=== PATIENT | male | born 1960 | race Caucasian/White ===

== ENCOUNTER 2018-01-02 01:44 | Emergency (ER) | payer OTHER, MEDICAID ==
[2018-01-02] MEDS: morphine 2 MG INJ IV (02:51)
[2018-01-02] MEDS: ONDANSETRON 4 MG INJ IV (02:51)
[2018-01-02] MEDS: LACTATED RINGER'S 1,000 ML IV (02:51)
[2018-01-02 02:55] LABS: ADD MAN DIFF? NO
[2018-01-02 02:56] LABS: WHITE BLOOD COUNT 12.5 10^3/ul (4.8-10.8)
[2018-01-02 02:56] LABS: BASOPHILS % 0.3 % (0.0-2.0); EOSINOPHILS # 0.1 10^3/ul (0.0-0.5); EOSINOPHILS % 0.7 % (0.0-7.0); HEMATOCRIT 33.8 % (42.0-52.0); HEMOGLOBIN 10.4 g/dl (14.0-18.0); LYMPHOCYTES # 1.8 10^3/ul (0.8-2.9); LYMPHOCYTES % 14.6 % (15.0-51.0); MEAN CORPUSCULAR HEMOGLOBIN 25.8 pg (29.0-33.0); MEAN CORPUSCULAR HGB CONC 30.8 g/dl (32.0-37.0); MEAN CORPUSCULAR VOLUME 83.9 fl (82.0-101.0); MEAN PLATELET VOLUME 9.8 fl (7.4-10.4); MONOCYTES % 7.7 % (0.0-11.0); NEUTROPHIL # 9.5 10^3/ul (1.6-7.5); NEUTROPHILS % 76.3 % (39.0-77.0); PLATELET COUNT 241 10^3/UL (140-415); RED BLOOD COUNT 4.03 10^6/ul (4.70-6.10); RED CELL DISTRIBUTION WIDTH 13.6 % (11.5-14.5)
[2018-01-02 03:17] LABS: ALANINE AMINOTRANSFERASE 32 IU/L (13-69); ALBUMIN 3.7 g/dl (3.3-4.9); ALKALINE PHOSPHATASE 119 IU/L (42-121); ANION GAP 12 (8-16); ASPARTATE AMINO TRANSFERASE 27 IU/L (15-46); BILIRUBIN,INDIRECT 0.3 mg/dl (0-1.1); BILIRUBIN,TOTAL 0.3 mg/dl (0.2-1.3); BLOOD UREA NITROGEN 29 mg/dl (7-20); CALCIUM 8.8 mg/dl (8.4-10.2); CARBON DIOXIDE 31 mmol/L (21-31); CHLORIDE 100 mmol/L (97-110); CREATININE 1.23 mg/dl (0.61-1.24); GLUCOSE 195 mg/dl (70-220); LIPASE 57 U/L (23-300); POTASSIUM 4.4 mmol/L (3.5-5.1); SODIUM 139 mmol/L (135-144); TOTAL PROTEIN 7.8 g/dl (6.1-8.1)
[2018-01-02 03:30] LABS: TROPONIN-I < 0.012 ng/ml (0.000-0.120)
[2018-01-02 03:39] LABS: ADD UMIC YES; UR ASCORBIC ACID NEGATIVE (NEGATIVE); UR BILIRUBIN (Dip) NEGATIVE (NEGATIVE); UR BLOOD (Dip) NEGATIVE (NEGATIVE); UR CLARITY CLEAR (CLEAR); UR COLOR YELLOW (YELLOW); UR GLUCOSE (Dip) 1+ mg/dL (NEGATIVE); UR KETONES (Dip) NEGATIVE (NEGATIVE); UR LEUKOCYTE ESTERASE (Dip) NEGATIVE Leu/ul (NEGATIVE); UR NITRITE (Dip) NEGATIVE (NEGATIVE); UR RBC 1 /HPF (0-5); UR SPECIFIC GRAVITY (Dip) 1.009 (1.003-1.030); UR TOTAL PROTEIN (Dip) 2+ mg/dl (NEGATIVE); UR UROBILINOGEN (Dip) NEGATIVE (NEGATIVE); UR WBC 0 /HPF (0-5)
[2018-01-02 03:47] LABS: B-TYPE NATRIURETIC PEPTIDE 1950 PG/ML (0-125)
[2018-01-02] MEDS: FUROSEMIDE 40 MG INJ IV (06:21)
== END 2018-01-02 07:15 | disposition home or self-care (01) ==
LOC: E/R 01:44
DX: R06.02 Shortness of breath (principal); R10.9 Unspecified abdominal pain; I10 Essential (primary) hypertension; E11.9 Type 2 diabetes mellitus without complications; Z79.4 Long term (current) use of insulin; Z79.82 Long term (current) use of aspirin; Z87.891 Personal history of nicotine dependence; Z98.61 Coronary angioplasty status
CPT/HCPCS: 36415; 71045; 80053; 81001; 83690; 83880; 84484; 85025; 93005; 96374; 96375; 99285-25

== ENCOUNTER 2018-01-03 06:27 | Inpatient (IN) | payer OTHER ==
[2018-01-03] MEDS: SODIUM CHLORIDE 0.9% 500 ML BAG IV* (06:39)
[2018-01-03 06:56] LABS: ADD MAN DIFF? NO
[2018-01-03] MEDS ORDERED: EPINEPHrine 0.1 MG/ML SYG (07:00)
[2018-01-03] MEDS ORDERED: NA BICARBONATE 8.4% 50 ML SYG (07:00)
[2018-01-03] MEDS ORDERED: DOPamine-D5W 1.6 MG/ML 250 ML ×2 (07:00→14:17)
[2018-01-03] MEDS ORDERED: ATROPINE 1 MG/10 ML SYRINGE ×2 (07:00→13:21)
[2018-01-03] MEDS ORDERED: DEXTROSE 50% 50 ML SYRINGE ×2 (07:00→07:27)
[2018-01-03] MEDS: VECURONIUM 10 MG VIAL IV (07:00)
[2018-01-03 07:02] LABS: WHITE BLOOD COUNT 21.1 10^3/ul (4.8-10.8)
[2018-01-03 07:02] LABS: ABNORMAL IP MESSAGE 1; BASOPHIL # 0.1 10^3/ul (0.0-0.1); BASOPHILS % 0.3 % (0.0-2.0); HEMOGLOBIN 10.7 g/dl (14.0-18.0); LYMPHOCYTES # 2.7 10^3/ul (0.8-2.9); LYMPHOCYTES % 12.5 % (15.0-51.0); MEAN CORPUSCULAR HEMOGLOBIN 26.9 pg (29.0-33.0); MEAN CORPUSCULAR HGB CONC 27.4 g/dl (32.0-37.0); MONOCYTE # 2.2 10^3/ul (0.3-0.9); MONOCYTES % 10.6 % (0.0-11.0); NEUTROPHIL # 15.4 10^3/ul (1.6-7.5); NUCLEATED RED BLOOD CELLS # 0.2 10^3/ul (0.0-0.0); NUCLEATED RED BLOOD CELLS% 0.7 /100WBC (0.0-0.0); PLATELET COUNT 203 10^3/UL (140-415); POSITIVE DIFF @See below; RED BLOOD COUNT 3.98 10^6/ul (4.70-6.10); RED CELL DISTRIBUTION WIDTH 13.9 % (11.5-14.5)
[2018-01-03 07:25] LABS: ALBUMIN 3.8 g/dl (3.3-4.9); ALKALINE PHOSPHATASE 130 IU/L (42-121); ANION GAP 41 (8-16); BILIRUBIN,INDIRECT 0.8 mg/dl (0-1.1); BLOOD UREA NITROGEN 33 mg/dl (7-20); CALCIUM 8.2 mg/dl (8.4-10.2); CARBON DIOXIDE 14 mmol/L (21-31); CHLORIDE 101 mmol/L (97-110); CREATININE 3.71 mg/dl (0.61-1.24); LIPASE 111 U/L (23-300); SODIUM 150 mmol/L (135-144); TOTAL PROTEIN 7.6 g/dl (6.1-8.1)
[2018-01-03 07:29] LABS: INR 2.31
[2018-01-03 07:30] LABS: PARTIAL THROMBOPLASTIN TIME 48.4 Sec (25.0-35.0)
[2018-01-03] MEDS: PROPOFOL 100 ML IV ×2 (07:31→21:00)
[2018-01-03] MEDS: DEXTROSE 50% 50 ML SYRINGE IV (07:38)
[2018-01-03] MEDS: DEXTROSE 5%-0.9% NACL 1,000 ML IV (07:40)
[2018-01-03 07:44] LABS: AADO2 Arterial 247.5 mmHg (7.0-24.0); Arterial Base Excess -23.4 mmol/L (-3.0-3); Arterial Blood Gas Oxygen Sat 99.5 mmHG (95.0-98.0); Arterial COHb 0.3 % (0.0-3.0); Arterial Fraction of Oxyhgb 98.5 % (93.0-99.0); Arterial HCO3 8.3 mmol/L (22.0-26.0); Arterial MetHb 0.7 % (0.0-1.5); Arterial Total Hemglobin 10.2 g/dl (12.0-18.0); Arterial pCO2 39.7 mmhg (35-45); MODE VENT - AC; Site Right Brachial
[2018-01-03 07:45] LABS: LACTIC ACID 21.4 mmol/L (0.5-2.0)
[2018-01-03 07:47] LABS: GLUCOSE 39 mg/dl (70-220); TROPONIN-I 0.197 ng/ml (0.000-0.120)
[2018-01-03 07:48] LABS: POTASSIUM 6.4 mmol/L (3.5-5.1)
[2018-01-03 08:10] LABS: ALANINE AMINOTRANSFERASE 3631 IU/L (13-69); ASPARTATE AMINO TRANSFERASE 3711 IU/L (15-46)
[2018-01-03] MEDS: SODIUM CHLORIDE 0.9% 1L BAG IV* (08:13)
[2018-01-03] MEDS: CEFEPIME 2GM/50 ML (PMX) 50 ML IVPB (08:16)
[2018-01-03] MEDS: CA CHLORIDE 10% 10 ML SYRINGE IV (08:16)
[2018-01-03 08:19] LABS: ANION GAP 35 (8-16); BLOOD UREA NITROGEN 35 mg/dl (7-20); CALCIUM 7.5 mg/dl (8.4-10.2); CARBON DIOXIDE 12 mmol/L (21-31); CHLORIDE 102 mmol/L (97-110); CREATININE 3.69 mg/dl (0.61-1.24); GLUCOSE 215 mg/dl (70-220); SODIUM 144 mmol/L (135-144)
[2018-01-03 08:28] LABS: LACTIC ACID 21.5 mmol/L (0.5-2.0)
[2018-01-03] MEDS: SOD CHLORIDE 0.9% 100 ML (08:58)
[2018-01-03] MEDS: IOHEXOL 100 ML (08:58)
[2018-01-03] MEDS: IOHEXOL 350MG/ML 50 ML BTL (08:59)
[2018-01-03] MEDS: NORepinephrine 8MG/250 ML (PMX 250 ML IV (09:20)
[2018-01-03] MEDS: VECURONIUM 100 MG in DEXTROSE 5% 100 ML IV ×2 (09:21→15:30)
[2018-01-03] MEDS ORDERED: ALBUTEROL/IPRATROPIUM (NEB) 3 ML AMP NEB (09:30)
[2018-01-03] MEDS ORDERED: VANCOMYCIN IV PER PHARMACY XX (09:30)
[2018-01-03] MEDS ORDERED: ACETAMINOPHEN 650 MG SUPP PR (09:30)
[2018-01-03] MEDS ORDERED: ALBUTEROL 0.083% (NEB) 2.5 MG/3 ML AMP NEB (09:30)
[2018-01-03] MEDS ORDERED: DEXTROSE 50% 50 ML SYRINGE IV ×2 (09:30)
[2018-01-03] MEDS ORDERED: MEPERIDINE 25 MG INJ IV ×2 (09:30)
[2018-01-03 10:16] LABS: LACTIC ACID 20.5 mmol/L (0.5-2.0)
[2018-01-03] MEDS: VANCOMYCIN 1 GM (PMX) 250 ML IVPB (10:24)
[2018-01-03 10:47] LABS: BLOOD UREA NITROGEN 35 mg/dl (7-20); CARBON DIOXIDE 11 mmol/L (21-31); CREATININE 3.69 mg/dl (0.61-1.24); GLUCOSE 211 mg/dl (70-220); POTASSIUM 5.6 mmol/L (3.5-5.1); SODIUM 143 mmol/L (135-144)
[2018-01-03 11:16] LABS: ANION GAP 34 (8-16); CHLORIDE 104 mmol/L (97-110)
[2018-01-03 11:20] LABS: MAGNESIUM 2.7 mg/dl (1.7-2.5)
[2018-01-03 11:33] LABS: PHOSPHORUS 13.7 mg/dl (2.5-4.9)
[2018-01-03 11:34] LABS: LACTIC ACID 21.6 mmol/L (0.5-2.0)
[2018-01-03 11:36] LABS: INR 2.83; PROTIME 30.6 Sec (11.9-14.9); PT RATIO 2.4
[2018-01-03 11:37] LABS: PARTIAL THROMBOPLASTIN TIME 45.1 Sec (25.0-35.0)
[2018-01-03] MEDS: ALBUTEROL 0.083% (NEB) 2.5 MG/3 ML AMP NEB ×2 (13:00→21:00)
[2018-01-03] MEDS: ALBUTEROL/IPRATROPIUM (NEB) 3 ML AMP NEB ×2 (13:00→21:53)
[2018-01-03] MEDS: ATROPINE 0.4 MG INJ IV (13:28)
[2018-01-03] MEDS ORDERED: PHENYLephrine 20MG IN 250 ML 250 ML IV (14:00)
[2018-01-03 14:16] LABS: ADD MAN DIFF? NO
[2018-01-03 14:20] LABS: ABNORMAL IP MESSAGE 1; BASOPHIL # 0.1 10^3/ul (0.0-0.1); BASOPHILS % 0.2 % (0.0-2.0); HEMATOCRIT 35.6 % (42.0-52.0); HEMOGLOBIN 9.6 g/dl (14.0-18.0); LYMPHOCYTES # 1.9 10^3/ul (0.8-2.9); LYMPHOCYTES % 7.3 % (15.0-51.0); MEAN CORPUSCULAR HEMOGLOBIN 26.4 pg (29.0-33.0); MEAN CORPUSCULAR VOLUME 98.1 fl (82.0-101.0); MEAN PLATELET VOLUME 10.8 fl (7.4-10.4); MONOCYTE # 1.4 10^3/ul (0.3-0.9); MONOCYTES % 5.5 % (0.0-11.0); NUCLEATED RED BLOOD CELLS% 0.1 /100WBC (0.0-0.0); PLATELET COUNT 206 10^3/UL (140-415); RED BLOOD COUNT 3.63 10^6/ul (4.70-6.10); RED CELL DISTRIBUTION WIDTH 13.7 % (11.5-14.5)
[2018-01-03 14:20] LABS: WHITE BLOOD COUNT 25.9 10^3/ul (4.8-10.8)
[2018-01-03] MEDS: NA BICARBONATE 8.4% 50 ML SYG IV (14:26)
[2018-01-03] MEDS: VASOPRESSIN 60 UNIT in DEXTROSE 5% 60 ML IV (14:30)
[2018-01-03 14:41] LABS: ALBUMIN 3.1 g/dl (3.3-4.9); ALBUMIN/GLOBULIN RATIO 0.93; ALKALINE PHOSPHATASE 108 IU/L (42-121); ANION GAP 35 (8-16); BILIRUBIN,INDIRECT 0.4 mg/dl (0-1.1); BILIRUBIN,TOTAL 0.8 mg/dl (0.2-1.3); BLOOD UREA NITROGEN 36 mg/dl (7-20); CALCIUM 7.9 mg/dl (8.4-10.2); CHLORIDE 104 mmol/L (97-110); CREATININE 3.94 mg/dl (0.61-1.24); GLUCOSE 210 mg/dl (70-220); MAGNESIUM 2.6 mg/dl (1.7-2.5); POTASSIUM 5.5 mmol/L (3.5-5.1); SODIUM 143 mmol/L (135-144); TOTAL PROTEIN 6.4 g/dl (6.1-8.1)
[2018-01-03 14:44] LABS: INR 2.97; PROTIME 31.8 Sec (11.9-14.9); PT RATIO 2.5
[2018-01-03 14:45] LABS: PARTIAL THROMBOPLASTIN TIME 44.9 Sec (25.0-35.0)
[2018-01-03 14:48] LABS: LACTIC ACID 20.1 mmol/L (0.5-2.0)
[2018-01-03 14:50] LABS: PHOSPHORUS 13.4 mg/dl (2.5-4.9)
[2018-01-03 14:52] LABS: CARBON DIOXIDE 10 mmol/L (21-31)
[2018-01-03] MEDS ORDERED: MIDAZOLAM (DRIP) 50 mg/50 mL 50 ML IV (15:00)
[2018-01-03] MEDS ORDERED: OCULAR LUBRICANT 3.5 GM OPH OINT BOTH EYES (15:00)
[2018-01-03] MEDS: ACCU-CHEK XX ×9 (15:00→23:00)
[2018-01-03] MEDS: INSULIN HUMAN REGULAR 100 UNIT in SOD CHLORIDE 0.9% 99 ML IV ×2 (15:00→23:00)
[2018-01-03] MEDS ORDERED: VASOPRESSIN 100 UNIT in SOD CHLORIDE 0.9% 95 ML IV (15:00)
[2018-01-03] MEDS: DOPamine-D5W 1.6 MG/ML 250 ML IV ×2 (15:30→20:06)
[2018-01-03 15:48] LABS: HEMOGLOBIN A1C 6.6 % (0-5.9)
[2018-01-03 15:59] LABS: ALANINE AMINOTRANSFERASE 5360 IU/L (13-69); ASPARTATE AMINO TRANSFERASE 7176 IU/L (15-46)
[2018-01-03] MEDS: SODIUM BICARBONATE (IV ADD) 150 MEQ in DEXTROSE 5%-0.45% NACL 850 ML IV ×2 (16:45→21:40)
[2018-01-03] MEDS: ASPIRIN 300 MG SUPP PR (17:00)
[2018-01-03] MEDS: VANCOMYCIN 1 GM 250 ML IVPB (17:32)
[2018-01-03] MEDS: ARTIFICIAL TEARS 15 ML OPH BOTH EYES ×2 (17:33→20:04)
[2018-01-03 18:30] LABS: ADD MAN DIFF? NO
[2018-01-03 18:33] LABS: BASOPHIL # 0.1 10^3/ul (0.0-0.1); BASOPHILS % 0.2 % (0.0-2.0); HEMATOCRIT 35.2 % (42.0-52.0); HEMOGLOBIN 9.5 g/dl (14.0-18.0); LYMPHOCYTES # 1.8 10^3/ul (0.8-2.9); LYMPHOCYTES % 6.4 % (15.0-51.0); MEAN CORPUSCULAR HEMOGLOBIN 26.1 pg (29.0-33.0); MEAN CORPUSCULAR VOLUME 96.7 fl (82.0-101.0); MEAN PLATELET VOLUME 11.1 fl (7.4-10.4); MONOCYTE # 1.3 10^3/ul (0.3-0.9); MONOCYTES % 4.7 % (0.0-11.0); NEUTROPHILS % 87.1 % (39.0-77.0); NUCLEATED RED BLOOD CELLS% 0.1 /100WBC (0.0-0.0); PLATELET COUNT 203 10^3/UL (140-415); RED BLOOD COUNT 3.64 10^6/ul (4.70-6.10); RED CELL DISTRIBUTION WIDTH 13.9 % (11.5-14.5)
[2018-01-03 18:35] LABS: WHITE BLOOD COUNT 27.5 10^3/ul (4.8-10.8)
[2018-01-03 18:52] LABS: ALBUMIN 3.2 g/dl (3.3-4.9); ALBUMIN/GLOBULIN RATIO 0.91; ALKALINE PHOSPHATASE 106 IU/L (42-121); AMYLASE 278 U/L (11-123); ANION GAP 39 (8-16); BILIRUBIN,INDIRECT 0.6 mg/dl (0-1.1); BILIRUBIN,TOTAL 1.2 mg/dl (0.2-1.3); BLOOD UREA NITROGEN 37 mg/dl (7-20); CALCIUM 7.9 mg/dl (8.4-10.2); CHLORIDE 101 mmol/L (97-110); CREATININE 4.11 mg/dl (0.61-1.24); GLUCOSE 230 mg/dl (70-220); LIPASE 593 U/L (23-300); MAGNESIUM 2.4 mg/dl (1.7-2.5); POTASSIUM 5.2 mmol/L (3.5-5.1); SODIUM 145 mmol/L (135-144); TOTAL PROTEIN 6.7 g/dl (6.1-8.1)
[2018-01-03 19:11] LABS: CARBON DIOXIDE 10 mmol/L (21-31)
[2018-01-03 19:12] LABS: LACTIC ACID 20.3 mmol/L (0.5-2.0)
[2018-01-03 19:12] LABS: PHOSPHORUS 13.4 mg/dl (2.5-4.9)
[2018-01-03 19:13] LABS: TROPONIN-I 0.423 ng/ml (0.000-0.120)
[2018-01-03 19:21] LABS: ALANINE AMINOTRANSFERASE 6936 IU/L (13-69)
[2018-01-03 19:28] LABS: ASPARTATE AMINO TRANSFERASE > 7500 IU/L (15-46)
[2018-01-03 19:50] LABS: D-DIMER > 10000.00 ng/ml (<460)
[2018-01-03] MEDS: ATORVASTATIN 40 MG TAB NGT (20:23)
[2018-01-03] MEDS: FAMOTIDINE 20 MG TAB PO (20:24)
[2018-01-03 20:57] LABS: AADO2 Arterial 620.4 mmHg (7.0-24.0); Arterial Base Excess -21.1 mmol/L (-3.0-3); Arterial HCO3 9.3 mmol/L (22.0-26.0); Arterial pCO2 31.6 mmhg (35-45); MODE VENT - AC; Site A-Line; Temperature 33.1 C
[2018-01-04] MEDS ORDERED: PHENYLephrine 40 MG in DEXTROSE 5% 496 ML IV
[2018-01-04] MEDS: ARTIFICIAL TEARS 15 ML OPH BOTH EYES ×5 (00:20→23:01)
[2018-01-04] MEDS: NA BICARBONATE 8.4% 50 ML SYG IV (00:21)
[2018-01-04] MEDS: ACCU-CHEK XX ×24 (01:00→23:00)
[2018-01-04] MEDS: SODIUM BICARBONATE (IV ADD) 150 MEQ in DEXTROSE 5%-0.45% NACL 850 ML IV ×4 (01:12→22:12)
[2018-01-04] MEDS: ALBUTEROL/IPRATROPIUM (NEB) 3 ML AMP NEB ×3 (01:20→09:00)
[2018-01-04 01:31] LABS: HEPATITIS B SURFACE ANTIGEN NEGATIVE (NEGATIVE)
[2018-01-04] MEDS: DOPamine-D5W 1.6 MG/ML 250 ML IV ×3 (01:42→15:12)
[2018-01-04 01:46] LABS: ADD MAN DIFF? NO
[2018-01-04 01:48] LABS: WHITE BLOOD COUNT 20.5 10^3/ul (4.8-10.8)
[2018-01-04 01:48] LABS: BASOPHILS % 0.1 % (0.0-2.0); HEMOGLOBIN 9.9 g/dl (14.0-18.0); MEAN CORPUSCULAR HEMOGLOBIN 26.5 pg (29.0-33.0); MEAN CORPUSCULAR VOLUME 88.2 fl (82.0-101.0); MEAN PLATELET VOLUME 11.1 fl (7.4-10.4); MONOCYTE # 0.4 10^3/ul (0.3-0.9); MONOCYTES % 1.9 % (0.0-11.0); NEUTROPHIL # 18.9 10^3/ul (1.6-7.5); NEUTROPHILS % 92.3 % (39.0-77.0); NUCLEATED RED BLOOD CELLS # 0.1 10^3/ul (0.0-0.0); NUCLEATED RED BLOOD CELLS% 0.2 /100WBC (0.0-0.0); PLATELET COUNT 156 10^3/UL (140-415); RED BLOOD COUNT 3.74 10^6/ul (4.70-6.10); RED CELL DISTRIBUTION WIDTH 13.5 % (11.5-14.5)
[2018-01-04 01:49] LABS: HEPATITIS B SURFACE ANTIBODY NEGATIVE (NEGATIVE)
[2018-01-04 02:05] LABS: ALBUMIN/GLOBULIN RATIO 0.85; ALKALINE PHOSPHATASE 114 IU/L (42-121); ANION GAP 28 (8-16); BILIRUBIN,INDIRECT 0.7 mg/dl (0-1.1); BILIRUBIN,TOTAL 1.3 mg/dl (0.2-1.3); BLOOD UREA NITROGEN 35 mg/dl (7-20); CALCIUM 7.3 mg/dl (8.4-10.2); CARBON DIOXIDE 23 mmol/L (21-31); CHLORIDE 97 mmol/L (97-110); CREATININE 3.14 mg/dl (0.61-1.24); GLUCOSE 252 mg/dl (70-220); MAGNESIUM 1.9 mg/dl (1.7-2.5); PHOSPHORUS 6.2 mg/dl (2.5-4.9); POTASSIUM 3.8 mmol/L (3.5-5.1); SODIUM 144 mmol/L (135-144); TOTAL PROTEIN 6.5 g/dl (6.1-8.1)
[2018-01-04 02:09] LABS: INR 2.62; PROTIME 28.7 Sec (11.9-14.9); PT RATIO 2.2
[2018-01-04 02:18] LABS: LACTIC ACID 14.5 mmol/L (0.5-2.0)
[2018-01-04] MEDS: VASOPRESSIN 60 UNIT in DEXTROSE 5% 60 ML IV ×2 (02:30→14:05)
[2018-01-04 02:34] LABS: ALANINE AMINOTRANSFERASE 8329 IU/L (13-69); ASPARTATE AMINO TRANSFERASE > 7500 IU/L (15-46)
[2018-01-04 02:53] LABS: PARTIAL THROMBOPLASTIN TIME 38.8 Sec (25.0-35.0)
[2018-01-04 03:12] LABS: AADO2 Arterial 628.8 mmHg (7.0-24.0); Arterial Base Excess -7.1 mmol/L (-3.0-3); Arterial COHb 0.3 % (0.0-3.0); Arterial Fraction of Oxyhgb 94.3 % (93.0-99.0); Arterial HCO3 18.8 mmol/L (22.0-26.0); Arterial MetHb 0.4 % (0.0-1.5); Arterial Total Hemglobin 11.3 g/dl (12.0-18.0); Arterial pCO2 32.6 mmhg (35-45); MODE VENT - AC; Site A-Line; Temperature 32.6 C
[2018-01-04] MEDS: INSULIN HUMAN REGULAR 100 UNIT in SOD CHLORIDE 0.9% 99 ML IV ×4 (04:15→18:46)
[2018-01-04] MEDS: VECURONIUM 100 MG in DEXTROSE 5% 100 ML IV ×2 (05:26→20:24)
[2018-01-04 05:40] LABS: ADD MAN DIFF? NO
[2018-01-04 05:53] LABS: BASOPHILS % 0.1 % (0.0-2.0); EOSINOPHILS % 0.1 % (0.0-7.0); HEMATOCRIT 32.5 % (42.0-52.0); HEMOGLOBIN 9.9 g/dl (14.0-18.0); LYMPHOCYTES # 0.8 10^3/ul (0.8-2.9); LYMPHOCYTES % 4.6 % (15.0-51.0); MEAN CORPUSCULAR HEMOGLOBIN 26.3 pg (29.0-33.0); MEAN CORPUSCULAR HGB CONC 30.5 g/dl (32.0-37.0); MEAN CORPUSCULAR VOLUME 86.4 fl (82.0-101.0); MEAN PLATELET VOLUME 11.4 fl (7.4-10.4); MONOCYTE # 0.4 10^3/ul (0.3-0.9); MONOCYTES % 2.1 % (0.0-11.0); NEUTROPHIL # 16.2 10^3/ul (1.6-7.5); NEUTROPHILS % 92.4 % (39.0-77.0); NUCLEATED RED BLOOD CELLS # 0.1 10^3/ul (0.0-0.0); NUCLEATED RED BLOOD CELLS% 0.4 /100WBC (0.0-0.0); PLATELET COUNT 147 10^3/UL (140-415); RED BLOOD COUNT 3.76 10^6/ul (4.70-6.10); RED CELL DISTRIBUTION WIDTH 13.4 % (11.5-14.5)
[2018-01-04 05:53] LABS: WHITE BLOOD COUNT 17.5 10^3/ul (4.8-10.8)
[2018-01-04 06:29] LABS: LACTIC ACID 13.5 mmol/L (0.5-2.0)
[2018-01-04 07:09] LABS: ALBUMIN 2.9 g/dl (3.3-4.9); ALBUMIN/GLOBULIN RATIO 0.82; ALKALINE PHOSPHATASE 114 IU/L (42-121); ANION GAP 28 (8-16); BILIRUBIN,INDIRECT 0.8 mg/dl (0-1.1); BILIRUBIN,TOTAL 1.5 mg/dl (0.2-1.3); BLOOD UREA NITROGEN 37 mg/dl (7-20); CALCIUM 7.2 mg/dl (8.4-10.2); CARBON DIOXIDE 22 mmol/L (21-31); CHLORIDE 98 mmol/L (97-110); CREATININE 3.46 mg/dl (0.61-1.24); GLUCOSE 269 mg/dl (70-220); MAGNESIUM 1.9 mg/dl (1.7-2.5); PHOSPHORUS 5.3 mg/dl (2.5-4.9); POTASSIUM 3.6 mmol/L (3.5-5.1); SODIUM 144 mmol/L (135-144); TOTAL PROTEIN 6.4 g/dl (6.1-8.1)
[2018-01-04 07:47] LABS: ALANINE AMINOTRANSFERASE 8426 IU/L (13-69); ASPARTATE AMINO TRANSFERASE > 7500 IU/L (15-46)
[2018-01-04] MEDS: CEFEPIME 2GM/50 ML (PMX) 50 ML IVPB (07:49)
[2018-01-04 08:11] LABS: HEPATITIS B SURFACE ANTIGEN NEGATIVE (NEGATIVE)
[2018-01-04 08:29] LABS: HEPATITIS B CORE ANTIBODY NEGATIVE (NEGATIVE); HEPATITIS C VIRAL ANTIBODY NEGATIVE (NEGATIVE)
[2018-01-04 08:32] LABS: HEPATITIS B SURFACE ANTIBODY NEGATIVE (NEGATIVE)
[2018-01-04] MEDS: PROPOFOL 100 ML IV ×3 (09:00→21:00)
[2018-01-04] MEDS ORDERED: ACETAMINOPHEN 650MG/20.3ML CUP PO (09:30)
[2018-01-04 09:38] LABS: AADO2 Arterial 633.2 mmHg (7.0-24.0); Arterial Base Excess -5.3 mmol/L (-3.0-3); Arterial Blood Gas Oxygen Sat 94.1 mmHG (95.0-98.0); Arterial COHb 0.3 % (0.0-3.0); Arterial Fraction of Oxyhgb 93.6 % (93.0-99.0); Arterial HCO3 19.9 mmol/L (22.0-26.0); Arterial MetHb 0.2 % (0.0-1.5); Arterial Total Hemglobin 10.8 g/dl (12.0-18.0); Arterial pCO2 31.8 mmhg (35-45); MODE VENT - AC; Site A-Line; Temperature 33.1 C
[2018-01-04] MEDS: ASPIRIN (EC) 81 MG TAB PO (09:42)
[2018-01-04] MEDS: FAMOTIDINE 20 MG TAB PO ×2 (09:42→21:15)
[2018-01-04] MEDS: ENOXAPARIN 30 MG/0.3 ML SYG SC (09:45)
[2018-01-04] MEDS: ALBUTEROL 0.083% (NEB) 2.5 MG/3 ML AMP NEB (10:42)
[2018-01-04] MEDS ORDERED: ACETAMINOPHEN 650 MG SUPP PR (14:00)
[2018-01-04] MEDS: ALBUTEROL HFA 8 GM INHALER INH ×2 (16:56→21:35)
[2018-01-04] MEDS ORDERED: IPRATROPIUM (HFA) 12.9 GM INHALER INH (17:00)
[2018-01-04] MEDS: ATORVASTATIN 40 MG TAB NGT (21:15)
[2018-01-05 00:20] LABS: AADO2 Arterial 609.5 mmHg (7.0-24.0); Arterial Blood Gas Oxygen Sat 92.7 mmHG (95.0-98.0); Arterial COHb 0.3 % (0.0-3.0); Arterial Fraction of Oxyhgb 92.2 % (93.0-99.0); Arterial HCO3 31.2 mmol/L (22.0-26.0); Arterial MetHb 0.2 % (0.0-1.5); Arterial Total Hemglobin 11.1 g/dl (12.0-18.0); Arterial pCO2 41.5 mmhg (35-45); MODE VENT - AC; Site A-Line; Temperature 36.5 C
[2018-01-05] MEDS: ACCU-CHEK XX ×25 (01:00→23:09)
[2018-01-05 01:15] LABS: WHITE BLOOD COUNT 9.4 10^3/ul (4.8-10.8)
[2018-01-05 01:15] LABS: HEMATOCRIT 31.3 % (42.0-52.0); HEMOGLOBIN 9.8 g/dl (14.0-18.0); MEAN CORPUSCULAR HEMOGLOBIN 25.7 pg (29.0-33.0); MEAN CORPUSCULAR HGB CONC 31.3 g/dl (32.0-37.0); MEAN CORPUSCULAR VOLUME 82.2 fl (82.0-101.0); MEAN PLATELET VOLUME 11.6 fl (7.4-10.4); PLATELET COUNT 114 10^3/UL (140-415); POSITIVE DIFF @See below; RED BLOOD COUNT 3.81 10^6/ul (4.70-6.10); RED CELL DISTRIBUTION WIDTH 13.8 % (11.5-14.5)
[2018-01-05 01:20] LABS: ADD MAN DIFF? YES
[2018-01-05 01:28] LABS: ALBUMIN 2.6 g/dl (3.3-4.9); ALBUMIN/GLOBULIN RATIO 0.81; ALKALINE PHOSPHATASE 136 IU/L (42-121); AMYLASE 416 U/L (11-123); ANION GAP 15 (8-16); BILIRUBIN,INDIRECT 1.5 mg/dl (0-1.1); BILIRUBIN,TOTAL 2.6 mg/dl (0.2-1.3); BLOOD UREA NITROGEN 37 mg/dl (7-20); CALCIUM 6.7 mg/dl (8.4-10.2); CARBON DIOXIDE 36 mmol/L (21-31); CHLORIDE 96 mmol/L (97-110); CREATININE 3.42 mg/dl (0.61-1.24); GLUCOSE 144 mg/dl (70-220); LIPASE 1349 U/L (23-300); MAGNESIUM 1.6 mg/dl (1.7-2.5); PHOSPHORUS 5.3 mg/dl (2.5-4.9); POTASSIUM 4.6 mmol/L (3.5-5.1); SODIUM 142 mmol/L (135-144); TOTAL PROTEIN 5.8 g/dl (6.1-8.1)
[2018-01-05] MEDS: ALBUTEROL HFA 8 GM INHALER INH ×6 (01:37→21:41)
[2018-01-05 01:46] LABS: ALANINE AMINOTRANSFERASE 7650 IU/L (13-69); ASPARTATE AMINO TRANSFERASE > 7500 IU/L (15-46)
[2018-01-05] MEDS: VASOPRESSIN 60 UNIT in DEXTROSE 5% 60 ML IV ×2 (02:12→14:30)
[2018-01-05 02:29] LABS: INR 2.54; PT RATIO 2.2
[2018-01-05 02:58] LABS: ANISOCYTOSIS 1+ (0-0); BAND NEUTROPHILS #M 1.5 10^3/ul (0.0-0.6); BAND NEUTROPHILS % (M) 16 % (0-4); ERYTHROBLAST% (NRBC) (M) 7 % (0-0); LYMPHOCYTES #M 0.9 10^3/ul (0.8-2.9); LYMPHOCYTES % (M) 10 % (15-51); MICROCYTOSIS 1+ (0-0); MONOCYTES % (M) 1 % (0-11); PLATELET ESTIMATE NORMAL; POLYCHROMASIA 3+ (0-0); SEGMENTED NEUTROPHILS (M) % 73 % (39-77); SMUDGE%M 8 % (0-0)
[2018-01-05] MEDS: PROPOFOL 100 ML IV ×2 (04:44→20:24)
[2018-01-05 05:20] LABS: ADD MAN DIFF? NO
[2018-01-05 05:21] LABS: BASOPHILS % 0.1 % (0.0-2.0); EOSINOPHILS % 0.3 % (0.0-7.0); HEMATOCRIT 30.6 % (42.0-52.0); HEMOGLOBIN 9.6 g/dl (14.0-18.0); LYMPHOCYTES # 0.7 10^3/ul (0.8-2.9); LYMPHOCYTES % 9.1 % (15.0-51.0); MEAN CORPUSCULAR HEMOGLOBIN 25.7 pg (29.0-33.0); MEAN CORPUSCULAR HGB CONC 31.4 g/dl (32.0-37.0); MEAN PLATELET VOLUME 11.3 fl (7.4-10.4); MONOCYTE # 0.3 10^3/ul (0.3-0.9); MONOCYTES % 4.5 % (0.0-11.0); NEUTROPHIL # 6.5 10^3/ul (1.6-7.5); NEUTROPHILS % 85.6 % (39.0-77.0); NUCLEATED RED BLOOD CELLS # 0.3 10^3/ul (0.0-0.0); NUCLEATED RED BLOOD CELLS% 3.6 /100WBC (0.0-0.0); PLATELET COUNT 115 10^3/UL (140-415); RED BLOOD COUNT 3.73 10^6/ul (4.70-6.10); RED CELL DISTRIBUTION WIDTH 13.7 % (11.5-14.5)
[2018-01-05 05:21] LABS: WHITE BLOOD COUNT 7.6 10^3/ul (4.8-10.8)
[2018-01-05] MEDS: MAGNESIUM SULFATE 2 GM/50 ML 50 ML IVPB (05:25)
[2018-01-05] MEDS: ARTIFICIAL TEARS 15 ML OPH BOTH EYES ×3 (05:26→17:14)
[2018-01-05] MEDS: SODIUM BICARBONATE (IV ADD) 150 MEQ in DEXTROSE 5%-0.45% NACL 850 ML IV ×2 (05:35→14:25)
[2018-01-05 05:47] LABS: VANCOMYCIN,RANDOM 11.5 ug/ml
[2018-01-05 05:54] LABS: ALBUMIN 2.5 g/dl (3.3-4.9); ALBUMIN/GLOBULIN RATIO 0.75; ALKALINE PHOSPHATASE 126 IU/L (42-121); ANION GAP 13 (8-16); BILIRUBIN,INDIRECT 1.3 mg/dl (0-1.1); BILIRUBIN,TOTAL 2.5 mg/dl (0.2-1.3); BLOOD UREA NITROGEN 42 mg/dl (7-20); CALCIUM 6.4 mg/dl (8.4-10.2); CARBON DIOXIDE 38 mmol/L (21-31); CHLORIDE 97 mmol/L (97-110); CREATININE 3.66 mg/dl (0.61-1.24); GLUCOSE 129 mg/dl (70-220); MAGNESIUM 1.6 mg/dl (1.7-2.5); PHOSPHORUS 5.1 mg/dl (2.5-4.9); POTASSIUM 5.4 mmol/L (3.5-5.1); SODIUM 143 mmol/L (135-144); TOTAL PROTEIN 5.8 g/dl (6.1-8.1)
[2018-01-05 06:20] LABS: ALANINE AMINOTRANSFERASE 7032 IU/L (13-69); ASPARTATE AMINO TRANSFERASE > 7500 IU/L (15-46)
[2018-01-05] MEDS: NA POLYST SULFON 15 GM/60 ML BTL PO (06:41)
[2018-01-05] MEDS: CEFEPIME 2GM/50 ML (PMX) 50 ML IVPB (07:58)
[2018-01-05] MEDS: ASPIRIN (EC) 81 MG TAB PO (08:00)
[2018-01-05] MEDS: FAMOTIDINE 20 MG TAB PO ×2 (08:00→20:25)
[2018-01-05] MEDS: ENOXAPARIN 30 MG/0.3 ML SYG SC (08:04)
[2018-01-05] MEDS: VECURONIUM 100 MG in DEXTROSE 5% 100 ML IV (11:06)
[2018-01-05] MEDS: HEPARIN 1000 UNITS/ML 10 ML INJ CATHETER (13:51)
[2018-01-05] MEDS ORDERED: DEXTROSE 50% 50 ML SYRINGE IV ×2 (20:00)
[2018-01-05] MEDS ORDERED: GLUCOSE GEL 15 GRAM TUBE BUCCAL (20:00)
[2018-01-05] MEDS ORDERED: GLUCAGON 1 MG INJ IM (20:00)
[2018-01-05] MEDS ORDERED: GLUCOSE GEL 15 GRAM TUBE PO ×2 (20:00)
[2018-01-05] MEDS: ATORVASTATIN 40 MG TAB NGT (20:25)
[2018-01-05] MEDS: INSULIN GLARGINE [LANtus] 3 ML PEN SC (20:27)
[2018-01-05] MEDS: INSULIN ASPART [NOVOLOG] 3 ML PEN SC (20:27)
[2018-01-06] MEDS: INSULIN ASPART [NOVOLOG] 3 ML PEN SC ×6 (01:00→20:47)
[2018-01-06] MEDS: ACCU-CHEK XX ×8 (01:10→07:00)
[2018-01-06] MEDS: ALBUTEROL HFA 8 GM INHALER INH ×5 (01:26→20:49)
[2018-01-06] MEDS: VASOPRESSIN 60 UNIT in DEXTROSE 5% 60 ML IV ×2 (02:03→14:03)
[2018-01-06 05:16] LABS: ADD MAN DIFF? NO
[2018-01-06 05:23] LABS: BASOPHILS % 0.3 % (0.0-2.0); EOSINOPHILS % 0.2 % (0.0-7.0); HEMATOCRIT 27.6 % (42.0-52.0); HEMOGLOBIN 8.8 g/dl (14.0-18.0); LYMPHOCYTES # 1.4 10^3/ul (0.8-2.9); LYMPHOCYTES % 11.4 % (15.0-51.0); MEAN CORPUSCULAR HGB CONC 31.9 g/dl (32.0-37.0); MEAN CORPUSCULAR VOLUME 81.4 fl (82.0-101.0); MEAN PLATELET VOLUME 11.6 fl (7.4-10.4); MONOCYTE # 0.6 10^3/ul (0.3-0.9); MONOCYTES % 5.1 % (0.0-11.0); NEUTROPHIL # 9.8 10^3/ul (1.6-7.5); NEUTROPHILS % 82.3 % (39.0-77.0); NUCLEATED RED BLOOD CELLS # 0.1 10^3/ul (0.0-0.0); PLATELET COUNT 121 10^3/UL (140-415); POSITIVE DIFF @See below; RED BLOOD COUNT 3.39 10^6/ul (4.70-6.10); RED CELL DISTRIBUTION WIDTH 14.6 % (11.5-14.5)
[2018-01-06 05:23] LABS: WHITE BLOOD COUNT 11.9 10^3/ul (4.8-10.8)
[2018-01-06 06:20] LABS: ALBUMIN 2.5 g/dl (3.3-4.9); ALBUMIN/GLOBULIN RATIO 0.75; ALKALINE PHOSPHATASE 157 IU/L (42-121); ANION GAP 16 (8-16); BILIRUBIN,INDIRECT 1.2 mg/dl (0-1.1); BLOOD UREA NITROGEN 47 mg/dl (7-20); CALCIUM 6.7 mg/dl (8.4-10.2); CARBON DIOXIDE 39 mmol/L (21-31); CHLORIDE 94 mmol/L (97-110); CREATININE 5.04 mg/dl (0.61-1.24); GLUCOSE 113 mg/dl (70-220); MAGNESIUM 1.9 mg/dl (1.7-2.5); PHOSPHORUS 4.4 mg/dl (2.5-4.9); POTASSIUM 4.5 mmol/L (3.5-5.1); SODIUM 144 mmol/L (135-144); TOTAL PROTEIN 5.8 g/dl (6.1-8.1)
[2018-01-06 07:05] LABS: ALANINE AMINOTRANSFERASE 4519 IU/L (13-69); ASPARTATE AMINO TRANSFERASE 3648 IU/L (15-46)
[2018-01-06] MEDS: ACETAMINOPHEN 650MG/20.3ML CUP PO (07:31)
[2018-01-06] MEDS: morphine 2 MG INJ IV (07:31)
[2018-01-06] MEDS: CEFEPIME 2GM/50 ML (PMX) 50 ML IVPB (07:32)
[2018-01-06] MEDS: ASPIRIN (EC) 81 MG TAB PO (08:05)
[2018-01-06] MEDS: FAMOTIDINE 20 MG TAB PO ×2 (08:05→20:44)
[2018-01-06] MEDS: ENOXAPARIN 30 MG/0.3 ML SYG SC (08:06)
[2018-01-06] MEDS: PROPOFOL 100 ML IV ×3 (08:08→22:16)
[2018-01-06] MEDS ORDERED: ALTEPLASE (CATHFLO) 2 MG INJ CATHETER (10:00)
[2018-01-06 11:54] LABS: AMMONIA < 9 umol/l (9-30)
[2018-01-06] MEDS: ATORVASTATIN 40 MG TAB NGT (20:44)
[2018-01-06] MEDS: INSULIN GLARGINE [LANtus] 3 ML PEN SC (20:46)
[2018-01-07] MEDS: INSULIN ASPART [NOVOLOG] 3 ML PEN SC ×6 (01:00→20:37)
[2018-01-07] MEDS: ALBUTEROL HFA 8 GM INHALER INH ×4 (01:33→16:30)
[2018-01-07] MEDS: ACCU-CHEK XX (02:00)
[2018-01-07] MEDS: PROPOFOL 100 ML IV ×5 (02:18→21:43)
[2018-01-07] MEDS: VASOPRESSIN 60 UNIT in DEXTROSE 5% 60 ML IV ×2 (02:30→14:30)
[2018-01-07 05:32] LABS: ADD MAN DIFF? NO
[2018-01-07 05:39] LABS: BASOPHIL # 0.1 10^3/ul (0.0-0.1); BASOPHILS % 0.5 % (0.0-2.0); EOSINOPHILS # 0.1 10^3/ul (0.0-0.5); EOSINOPHILS % 0.9 % (0.0-7.0); HEMATOCRIT 27.6 % (42.0-52.0); HEMOGLOBIN 8.7 g/dl (14.0-18.0); LYMPHOCYTES # 1.5 10^3/ul (0.8-2.9); LYMPHOCYTES % 11.6 % (15.0-51.0); MEAN CORPUSCULAR HEMOGLOBIN 25.9 pg (29.0-33.0); MEAN CORPUSCULAR HGB CONC 31.5 g/dl (32.0-37.0); MEAN CORPUSCULAR VOLUME 82.1 fl (82.0-101.0); MEAN PLATELET VOLUME 11.2 fl (7.4-10.4); MONOCYTE # 0.9 10^3/ul (0.3-0.9); MONOCYTES % 7.2 % (0.0-11.0); NEUTROPHIL # 10.1 10^3/ul (1.6-7.5); NEUTROPHILS % 78.4 % (39.0-77.0); NUCLEATED RED BLOOD CELLS # 0.2 10^3/ul (0.0-0.0); NUCLEATED RED BLOOD CELLS% 1.3 /100WBC (0.0-0.0); PLATELET COUNT 112 10^3/UL (140-415); RED BLOOD COUNT 3.36 10^6/ul (4.70-6.10); RED CELL DISTRIBUTION WIDTH 14.9 % (11.5-14.5)
[2018-01-07 05:39] LABS: WHITE BLOOD COUNT 12.9 10^3/ul (4.8-10.8)
[2018-01-07 05:55] LABS: BLOOD UREA NITROGEN 69 mg/dl (7-20); CALCIUM 6.8 mg/dl (8.4-10.2); CHLORIDE 96 mmol/L (97-110); CREATININE 6.75 mg/dl (0.61-1.24); GLUCOSE 67 mg/dl (70-220); MAGNESIUM 2.2 mg/dl (1.7-2.5); PHOSPHORUS 3.6 mg/dl (2.5-4.9); SODIUM 145 mmol/L (135-144)
[2018-01-07 06:10] LABS: ANION GAP 11 (8-16)
[2018-01-07 06:13] LABS: CARBON DIOXIDE 42 mmol/L (21-31)
[2018-01-07 06:16] LABS: ALBUMIN 2.4 g/dl (3.3-4.9); ALKALINE PHOSPHATASE 177 IU/L (42-121); BILIRUBIN,INDIRECT 0.8 mg/dl (0-1.1); BILIRUBIN,TOTAL 2.4 mg/dl (0.2-1.3); TOTAL PROTEIN 5.6 g/dl (6.1-8.1)
[2018-01-07 06:34] LABS: ASPARTATE AMINO TRANSFERASE 2181 IU/L (15-46)
[2018-01-07 06:37] LABS: ALANINE AMINOTRANSFERASE 3439 IU/L (13-69)
[2018-01-07] MEDS: PHENYTOIN 1,250 MG in SOD CHLORIDE 0.9% 150 ML IV (08:13)
[2018-01-07] MEDS: CEFEPIME 2GM/50 ML (PMX) 50 ML IVPB (08:13)
[2018-01-07] MEDS: FAMOTIDINE 20 MG TAB PO ×2 (09:06→20:38)
[2018-01-07] MEDS: ASPIRIN (EC) 81 MG TAB PO (09:06)
[2018-01-07] MEDS: ENOXAPARIN 30 MG/0.3 ML SYG SC (09:17)
[2018-01-07 10:55] LABS: AADO2 Arterial 610.9 mmHg (7.0-24.0); Arterial Base Excess 9.9 mmol/L (-3.0-3); Arterial Blood Gas Oxygen Sat 92.9 mmHG (95.0-98.0); Arterial COHb 0.3 % (0.0-3.0); Arterial Fraction of Oxyhgb 92.6 % (93.0-99.0); Arterial HCO3 32.9 mmol/L (22.0-26.0); Arterial MetHb 0 % (0.0-1.5); Arterial Total Hemglobin 9.8 g/dl (12.0-18.0); Arterial pCO2 38.1 mmhg (35-45); MODE VENT - AC; Site Right Brachial
[2018-01-07] MEDS ORDERED: ALTEPLASE (CATHFLO) 2 MG INJ CATHETER (12:30)
[2018-01-07 13:56] LABS: PHENYTOIN (DILANTIN) 6.8 ug/ml (10.0-20.0)
[2018-01-07] MEDS: PHENYTOIN 100 MG INJ IV ×2 (14:00→18:52)
[2018-01-07] MEDS: HEPARIN 1000 UNITS/ML 10 ML INJ CATHETER (17:39)
[2018-01-07] MEDS: INSULIN GLARGINE [LANtus] 3 ML PEN SC (19:51)
[2018-01-07] MEDS: ATORVASTATIN 40 MG TAB NGT (20:38)
[2018-01-08] MEDS: INSULIN ASPART [NOVOLOG] 3 ML PEN SC ×6 (01:00→20:36)
[2018-01-08] MEDS: ALBUTEROL HFA 8 GM INHALER INH ×4 (01:23→19:37)
[2018-01-08] MEDS: ACCU-CHEK XX (01:24)
[2018-01-08] MEDS: PROPOFOL 100 ML IV ×5 (01:27→21:56)
[2018-01-08 01:46] LABS: AADO2 Arterial 614.6 mmHg (7.0-24.0); Arterial Base Excess 8.8 mmol/L (-3.0-3); Arterial Blood Gas Oxygen Sat 90.5 mmHG (95.0-98.0); Arterial COHb 0.3 % (0.0-3.0); Arterial Fraction of Oxyhgb 90.1 % (93.0-99.0); Arterial HCO3 32.3 mmol/L (22.0-26.0); Arterial MetHb 0.1 % (0.0-1.5); Arterial pCO2 39.8 mmhg (35-45); MODE VENT - AC; Site Right Brachial
[2018-01-08] MEDS: VASOPRESSIN 60 UNIT in DEXTROSE 5% 60 ML IV ×2 (02:30→13:52)
[2018-01-08 05:18] LABS: ADD MAN DIFF? NO
[2018-01-08 05:23] LABS: BASOPHIL # 0.1 10^3/ul (0.0-0.1); BASOPHILS % 0.5 % (0.0-2.0); EOSINOPHILS # 0.2 10^3/ul (0.0-0.5); EOSINOPHILS % 1.7 % (0.0-7.0); HEMATOCRIT 28.7 % (42.0-52.0); LYMPHOCYTES # 1.5 10^3/ul (0.8-2.9); LYMPHOCYTES % 13.5 % (15.0-51.0); MEAN CORPUSCULAR HEMOGLOBIN 25.8 pg (29.0-33.0); MEAN CORPUSCULAR HGB CONC 31.4 g/dl (32.0-37.0); MEAN CORPUSCULAR VOLUME 82.2 fl (82.0-101.0); MEAN PLATELET VOLUME 10.9 fl (7.4-10.4); MONOCYTE # 1.1 10^3/ul (0.3-0.9); MONOCYTES % 9.7 % (0.0-11.0); NEUTROPHIL # 8.1 10^3/ul (1.6-7.5); NEUTROPHILS % 73.8 % (39.0-77.0); NUCLEATED RED BLOOD CELLS # 0.2 10^3/ul (0.0-0.0); NUCLEATED RED BLOOD CELLS% 1.9 /100WBC (0.0-0.0); PLATELET COUNT 115 10^3/UL (140-415); RED BLOOD COUNT 3.49 10^6/ul (4.70-6.10); RED CELL DISTRIBUTION WIDTH 15.2 % (11.5-14.5)
[2018-01-08] MEDS: PHENYTOIN 100 MG INJ IV ×3 (05:30→21:59)
[2018-01-08 06:09] LABS: ANION GAP 15 (8-16); BLOOD UREA NITROGEN 64 mg/dl (7-20); CALCIUM 7.3 mg/dl (8.4-10.2); CARBON DIOXIDE 35 mmol/L (21-31); CHLORIDE 97 mmol/L (97-110); CREATININE 6.49 mg/dl (0.61-1.24); GLUCOSE 102 mg/dl (70-220); MAGNESIUM 2.1 mg/dl (1.7-2.5); PHOSPHORUS 4.4 mg/dl (2.5-4.9); POTASSIUM 4.5 mmol/L (3.5-5.1); SODIUM 142 mmol/L (135-144)
[2018-01-08] MEDS: CEFEPIME 2GM/50 ML (PMX) 50 ML IVPB (08:54)
[2018-01-08] MEDS: ASPIRIN (EC) 81 MG TAB PO (10:53)
[2018-01-08] MEDS: FAMOTIDINE 20 MG TAB PO ×2 (10:53→20:29)
[2018-01-08] MEDS: ENOXAPARIN 30 MG/0.3 ML SYG SC (10:54)
[2018-01-08] MEDS: HEPARIN 1000 UNITS/ML 10 ML INJ CATHETER (12:14)
[2018-01-08] MEDS: INSULIN GLARGINE [LANtus] 3 ML PEN SC (20:28)
[2018-01-09] MEDS: INSULIN ASPART [NOVOLOG] 3 ML PEN SC ×6 (01:00→20:33)
[2018-01-09] MEDS: ALBUTEROL HFA 8 GM INHALER INH ×4 (01:28→19:34)
[2018-01-09] MEDS: ACCU-CHEK XX (02:05)
[2018-01-09] MEDS: VASOPRESSIN 60 UNIT in DEXTROSE 5% 60 ML IV ×2 (02:08→14:03)
[2018-01-09] MEDS: PROPOFOL 100 ML IV ×2 (02:29→06:46)
[2018-01-09 05:05] LABS: WHITE BLOOD COUNT 11.2 10^3/ul (4.8-10.8)
[2018-01-09 05:05] LABS: ADD MAN DIFF? NO; BASOPHIL # 0.1 10^3/ul (0.0-0.1); BASOPHILS % 0.4 % (0.0-2.0); EOSINOPHILS # 0.3 10^3/ul (0.0-0.5); EOSINOPHILS % 2.9 % (0.0-7.0); HEMATOCRIT 27.3 % (42.0-52.0); HEMOGLOBIN 8.7 g/dl (14.0-18.0); LYMPHOCYTES # 1.5 10^3/ul (0.8-2.9); LYMPHOCYTES % 13.8 % (15.0-51.0); MEAN CORPUSCULAR HEMOGLOBIN 26.1 pg (29.0-33.0); MEAN CORPUSCULAR HGB CONC 31.9 g/dl (32.0-37.0); MONOCYTE # 1.1 10^3/ul (0.3-0.9); NEUTROPHIL # 8.1 10^3/ul (1.6-7.5); NUCLEATED RED BLOOD CELLS # 0.1 10^3/ul (0.0-0.0); NUCLEATED RED BLOOD CELLS% 0.7 /100WBC (0.0-0.0); PLATELET COUNT 127 10^3/UL (140-415); RED BLOOD COUNT 3.33 10^6/ul (4.70-6.10); RED CELL DISTRIBUTION WIDTH 15.3 % (11.5-14.5)
[2018-01-09] MEDS: ACETAMINOPHEN 650MG/20.3ML CUP PO (05:16)
[2018-01-09 05:37] LABS: ANION GAP 21 (8-16); BLOOD UREA NITROGEN 82 mg/dl (7-20); CALCIUM 7.6 mg/dl (8.4-10.2); CARBON DIOXIDE 31 mmol/L (21-31); CHLORIDE 95 mmol/L (97-110); CREATININE 8.17 mg/dl (0.61-1.24); GLUCOSE 111 mg/dl (70-220); SODIUM 142 mmol/L (135-144)
[2018-01-09] MEDS: PHENYTOIN 100 MG INJ IV ×3 (06:04→22:28)
[2018-01-09] MEDS: ASPIRIN (EC) 81 MG TAB PO (08:08)
[2018-01-09] MEDS: FAMOTIDINE 20 MG TAB PO ×2 (08:08→20:38)
[2018-01-09] MEDS: CEFEPIME 2GM/50 ML (PMX) 50 ML IVPB (08:08)
[2018-01-09] MEDS: ENOXAPARIN 30 MG/0.3 ML SYG SC (08:12)
[2018-01-09] MEDS: FENTAnyl (DRIP) 1000 mcg/100mL 100 ML IV (10:53)
[2018-01-09] MEDS: ALTEPLASE (CATHFLO) 2 MG INJ CATHETER ×2 (14:20)
[2018-01-09] MEDS: INSULIN GLARGINE [LANtus] 3 ML PEN SC (20:32)
[2018-01-09] MEDS: ARTIFICIAL TEARS 15 ML OPH BOTH EYES (20:38)
[2018-01-10] MEDS: INSULIN ASPART [NOVOLOG] 3 ML PEN SC ×6 (01:00→20:40)
[2018-01-10] MEDS: ALBUTEROL HFA 8 GM INHALER INH ×4 (01:29→19:45)
[2018-01-10] MEDS: ACCU-CHEK XX (02:04)
[2018-01-10] MEDS: VASOPRESSIN 60 UNIT in DEXTROSE 5% 60 ML IV ×2 (02:05→13:47)
[2018-01-10 05:18] LABS: ADD MAN DIFF? NO
[2018-01-10 05:23] LABS: BASOPHILS % 0.2 % (0.0-2.0); EOSINOPHILS # 0.3 10^3/ul (0.0-0.5); EOSINOPHILS % 2.5 % (0.0-7.0); HEMATOCRIT 28.4 % (42.0-52.0); HEMOGLOBIN 8.9 g/dl (14.0-18.0); LYMPHOCYTES # 1.7 10^3/ul (0.8-2.9); LYMPHOCYTES % 13.3 % (15.0-51.0); MEAN CORPUSCULAR HEMOGLOBIN 25.2 pg (29.0-33.0); MEAN CORPUSCULAR HGB CONC 31.3 g/dl (32.0-37.0); MEAN CORPUSCULAR VOLUME 80.5 fl (82.0-101.0); MEAN PLATELET VOLUME 11.7 fl (7.4-10.4); MONOCYTE # 1.5 10^3/ul (0.3-0.9); MONOCYTES % 11.3 % (0.0-11.0); NEUTROPHIL # 9.3 10^3/ul (1.6-7.5); NEUTROPHILS % 71.5 % (39.0-77.0); NUCLEATED RED BLOOD CELLS% 0.3 /100WBC (0.0-0.0); PLATELET COUNT 112 10^3/UL (140-415); RED BLOOD COUNT 3.53 10^6/ul (4.70-6.10); RED CELL DISTRIBUTION WIDTH 15.4 % (11.5-14.5)
[2018-01-10 05:37] LABS: PHOSPHORUS 6.7 mg/dl (2.5-4.9)
[2018-01-10 05:37] LABS: MAGNESIUM 2.4 mg/dl (1.7-2.5)
[2018-01-10 05:39] LABS: ALBUMIN 2.7 g/dl (3.3-4.9); ALBUMIN/GLOBULIN RATIO 0.71; ALKALINE PHOSPHATASE 418 IU/L (42-121); ANION GAP 17 (8-16); ASPARTATE AMINO TRANSFERASE 573 IU/L (15-46); BILIRUBIN,INDIRECT 0.5 mg/dl (0-1.1); BILIRUBIN,TOTAL 2.5 mg/dl (0.2-1.3); BLOOD UREA NITROGEN 73 mg/dl (7-20); CALCIUM 8.2 mg/dl (8.4-10.2); CARBON DIOXIDE 34 mmol/L (21-31); CHLORIDE 97 mmol/L (97-110); CREATININE 7.55 mg/dl (0.61-1.24); GLUCOSE 112 mg/dl (70-220); POTASSIUM 5.1 mmol/L (3.5-5.1); SODIUM 143 mmol/L (135-144); TOTAL PROTEIN 6.5 g/dl (6.1-8.1)
[2018-01-10 05:47] LABS: ALANINE AMINOTRANSFERASE 1409 IU/L (13-69)
[2018-01-10] MEDS: PHENYTOIN 100 MG INJ IV ×3 (06:14→22:09)
[2018-01-10] MEDS: FAMOTIDINE 20 MG TAB PO ×2 (09:16→20:35)
[2018-01-10] MEDS: ASPIRIN (EC) 81 MG TAB PO (09:16)
[2018-01-10] MEDS: ARTIFICIAL TEARS 15 ML OPH BOTH EYES ×4 (09:17→20:35)
[2018-01-10] MEDS: CEFEPIME 2GM/50 ML (PMX) 50 ML IVPB (09:17)
[2018-01-10] MEDS: ENOXAPARIN 30 MG/0.3 ML SYG SC (09:18)
[2018-01-10] MEDS: HEPARIN 1000 UNITS/ML 10 ML INJ CATHETER (10:44)
[2018-01-10] MEDS: INSULIN GLARGINE [LANtus] 3 ML PEN SC (20:32)
[2018-01-11] MEDS: INSULIN ASPART [NOVOLOG] 3 ML PEN SC ×6 (00:45→20:46)
[2018-01-11] MEDS: ALBUTEROL HFA 8 GM INHALER INH ×4 (01:49→19:18)
[2018-01-11] MEDS: ACCU-CHEK XX (02:11)
[2018-01-11] MEDS: PHENYTOIN 100 MG INJ IV ×3 (05:35→20:42)
[2018-01-11 05:46] LABS: ADD MAN DIFF? NO
[2018-01-11 05:49] LABS: WHITE BLOOD COUNT 15.5 10^3/ul (4.8-10.8)
[2018-01-11 05:49] LABS: ABNORMAL IP MESSAGE 1; BASOPHILS % 0.3 % (0.0-2.0); EOSINOPHILS # 0.3 10^3/ul (0.0-0.5); EOSINOPHILS % 1.6 % (0.0-7.0); HEMATOCRIT 25.4 % (42.0-52.0); HEMOGLOBIN 8.1 g/dl (14.0-18.0); LYMPHOCYTES % 12.7 % (15.0-51.0); MEAN CORPUSCULAR HEMOGLOBIN 25.5 pg (29.0-33.0); MEAN CORPUSCULAR HGB CONC 31.9 g/dl (32.0-37.0); MEAN CORPUSCULAR VOLUME 79.9 fl (82.0-101.0); MEAN PLATELET VOLUME 11.6 fl (7.4-10.4); MONOCYTE # 1.7 10^3/ul (0.3-0.9); MONOCYTES % 10.8 % (0.0-11.0); NEUTROPHIL # 11.4 10^3/ul (1.6-7.5); NEUTROPHILS % 73.6 % (39.0-77.0); NUCLEATED RED BLOOD CELLS% 0.2 /100WBC (0.0-0.0); PLATELET COUNT 132 10^3/UL (140-415); POSITIVE DIFF @See below; RED BLOOD COUNT 3.18 10^6/ul (4.70-6.10); RED CELL DISTRIBUTION WIDTH 15.4 % (11.5-14.5)
[2018-01-11 06:17] LABS: ANION GAP 18 (8-16); BLOOD UREA NITROGEN 91 mg/dl (7-20); CALCIUM 8.1 mg/dl (8.4-10.2); CARBON DIOXIDE 29 mmol/L (21-31); CHLORIDE 98 mmol/L (97-110); GLUCOSE 122 mg/dl (70-220); MAGNESIUM 2.7 mg/dl (1.7-2.5); PHOSPHORUS 7.3 mg/dl (2.5-4.9); SODIUM 140 mmol/L (135-144)
[2018-01-11] MEDS: FAMOTIDINE 20 MG TAB PO ×2 (08:24→20:42)
[2018-01-11] MEDS: ARTIFICIAL TEARS 15 ML OPH BOTH EYES ×4 (08:24→20:43)
[2018-01-11] MEDS: ASPIRIN (EC) 81 MG TAB PO (08:24)
[2018-01-11] MEDS: ENOXAPARIN 30 MG/0.3 ML SYG SC (08:36)
[2018-01-11] MEDS: HEPARIN 1000 UNITS/ML 10 ML INJ CATHETER (18:26)
[2018-01-11] MEDS: CEFEPIME 2GM/50 ML (PMX) 50 ML IVPB (19:30)
[2018-01-11] MEDS: INSULIN GLARGINE [LANtus] 3 ML PEN SC (20:46)
[2018-01-12] MEDS: INSULIN ASPART [NOVOLOG] 3 ML PEN SC ×6 (01:00→21:07)
[2018-01-12] MEDS: ACCU-CHEK XX (01:14)
[2018-01-12] MEDS: ALBUTEROL HFA 8 GM INHALER INH ×4 (01:15→20:16)
[2018-01-12 05:15] LABS: ADD MAN DIFF? NO
[2018-01-12 05:20] LABS: ABNORMAL IP MESSAGE 1; BASOPHILS % 0.3 % (0.0-2.0); EOSINOPHILS # 0.2 10^3/ul (0.0-0.5); EOSINOPHILS % 1.6 % (0.0-7.0); HEMATOCRIT 28.9 % (42.0-52.0); LYMPHOCYTES # 1.9 10^3/ul (0.8-2.9); MEAN CORPUSCULAR HEMOGLOBIN 25.1 pg (29.0-33.0); MEAN CORPUSCULAR HGB CONC 31.1 g/dl (32.0-37.0); MEAN CORPUSCULAR VOLUME 80.7 fl (82.0-101.0); MONOCYTE # 1.6 10^3/ul (0.3-0.9); MONOCYTES % 10.9 % (0.0-11.0); NEUTROPHIL # 10.7 10^3/ul (1.6-7.5); NEUTROPHILS % 72.8 % (39.0-77.0); PLATELET COUNT 148 10^3/UL (140-415); POSITIVE DIFF @See below; RED BLOOD COUNT 3.58 10^6/ul (4.70-6.10); RED CELL DISTRIBUTION WIDTH 15.5 % (11.5-14.5)
[2018-01-12 05:20] LABS: WHITE BLOOD COUNT 14.7 10^3/ul (4.8-10.8)
[2018-01-12] MEDS: PHENYTOIN 100 MG INJ IV ×3 (05:56→21:04)
[2018-01-12 06:13] LABS: ANION GAP 11 (8-16); BLOOD UREA NITROGEN 76 mg/dl (7-20); CALCIUM 8.3 mg/dl (8.4-10.2); CARBON DIOXIDE 32 mmol/L (21-31); CHLORIDE 102 mmol/L (97-110); CREATININE 8.33 mg/dl (0.61-1.24); GLUCOSE 140 mg/dl (70-220); MAGNESIUM 2.5 mg/dl (1.7-2.5); PHOSPHORUS 6.6 mg/dl (2.5-4.9); SODIUM 140 mmol/L (135-144)
[2018-01-12] MEDS: ASPIRIN (EC) 81 MG TAB PO (07:58)
[2018-01-12] MEDS: FAMOTIDINE 20 MG TAB PO ×2 (07:58→21:03)
[2018-01-12] MEDS: ARTIFICIAL TEARS 15 ML OPH BOTH EYES ×4 (08:04→21:03)
[2018-01-12] MEDS: ENOXAPARIN 30 MG/0.3 ML SYG SC (08:04)
[2018-01-12] MEDS: HEPARIN 1000 UNITS/ML 10 ML INJ CATHETER (18:25)
[2018-01-12] MEDS: CEFEPIME 2GM/50 ML (PMX) 50 ML IVPB (18:54)
[2018-01-12] MEDS: INSULIN GLARGINE [LANtus] 3 ML PEN SC (21:06)
[2018-01-13] MEDS: INSULIN ASPART [NOVOLOG] 3 ML PEN SC ×6 (01:00→20:51)
[2018-01-13] MEDS: ALBUTEROL HFA 8 GM INHALER INH ×4 (01:47→20:00)
[2018-01-13] MEDS: ACCU-CHEK XX (02:17)
[2018-01-13 05:29] LABS: AADO2 Arterial 133.3 mmHg (7.0-24.0); Allen Test ACCEPTAB; Arterial Base Excess 3.7 mmol/L (-3.0-3); Arterial Blood Gas Oxygen Sat 97.5 mmHG (95.0-98.0); Arterial COHb 1.2 % (0.0-3.0); Arterial Fraction of Oxyhgb 96.1 % (93.0-99.0); Arterial HCO3 29.4 mmol/L (22.0-26.0); Arterial MetHb 0.2 % (0.0-1.5); Arterial Total Hemglobin 14.5 g/dl (12.0-18.0); Arterial pCO2 48.3 mmhg (35-45); MODE VENT - AC; Site Left Radial
[2018-01-13] MEDS: PHENYTOIN 100 MG INJ IV (05:34)
[2018-01-13] MEDS: ENOXAPARIN 30 MG/0.3 ML SYG SC (09:13)
[2018-01-13] MEDS: ASPIRIN (EC) 81 MG TAB PO (09:15)
[2018-01-13] MEDS: FAMOTIDINE 20 MG TAB PO ×2 (09:16→21:09)
[2018-01-13] MEDS: ARTIFICIAL TEARS 15 ML OPH BOTH EYES ×4 (09:16→21:09)
[2018-01-13] MEDS: HEPARIN 1000 UNITS/ML 10 ML INJ CATHETER (17:35)
[2018-01-13] MEDS: CEFEPIME 2GM/50 ML (PMX) 50 ML IVPB (17:56)
[2018-01-13] MEDS: PHENYTOIN (100 MG/4 ML) CUP NGT ×2 (17:56→21:09)
[2018-01-13] MEDS: INSULIN GLARGINE [LANtus] 3 ML PEN SC (21:10)
[2018-01-14] MEDS: INSULIN ASPART [NOVOLOG] 3 ML PEN SC ×6 (01:00→21:00)
[2018-01-14] MEDS: ACCU-CHEK XX (01:01)
[2018-01-14] MEDS: ALBUTEROL HFA 8 GM INHALER INH ×4 (02:00→21:17)
[2018-01-14 05:10] LABS: ADD MAN DIFF? NO
[2018-01-14 05:20] LABS: WHITE BLOOD COUNT 14.1 10^3/ul (4.8-10.8)
[2018-01-14 05:20] LABS: BASOPHIL # 0.1 10^3/ul (0.0-0.1); BASOPHILS % 0.5 % (0.0-2.0); EOSINOPHILS # 0.2 10^3/ul (0.0-0.5); EOSINOPHILS % 1.6 % (0.0-7.0); HEMATOCRIT 29.8 % (42.0-52.0); HEMOGLOBIN 9.1 g/dl (14.0-18.0); LYMPHOCYTES # 2.1 10^3/ul (0.8-2.9); LYMPHOCYTES % 14.6 % (15.0-51.0); MEAN CORPUSCULAR HEMOGLOBIN 25.4 pg (29.0-33.0); MEAN CORPUSCULAR HGB CONC 30.5 g/dl (32.0-37.0); MEAN CORPUSCULAR VOLUME 83.2 fl (82.0-101.0); MEAN PLATELET VOLUME 10.8 fl (7.4-10.4); MONOCYTE # 1.4 10^3/ul (0.3-0.9); NEUTROPHIL # 10.2 10^3/ul (1.6-7.5); NEUTROPHILS % 72.1 % (39.0-77.0); PLATELET COUNT 235 10^3/UL (140-415); RED BLOOD COUNT 3.58 10^6/ul (4.70-6.10); RED CELL DISTRIBUTION WIDTH 15.9 % (11.5-14.5)
[2018-01-14 05:47] LABS: PHOSPHORUS 6.8 mg/dl (2.5-4.9)
[2018-01-14 05:47] LABS: MAGNESIUM 2.3 mg/dl (1.7-2.5)
[2018-01-14] MEDS: PHENYTOIN (100 MG/4 ML) CUP NGT ×3 (08:35→21:55)
[2018-01-14] MEDS: FAMOTIDINE 20 MG TAB PO ×2 (08:36→21:55)
[2018-01-14] MEDS: ARTIFICIAL TEARS 15 ML OPH BOTH EYES ×4 (08:36→21:55)
[2018-01-14] MEDS: ASPIRIN (EC) 81 MG TAB PO (08:36)
[2018-01-14] MEDS: ENOXAPARIN 30 MG/0.3 ML SYG SC (08:37)
[2018-01-14 12:29] LABS: ANION GAP 13 (8-16); BLOOD UREA NITROGEN 57 mg/dl (7-20); CALCIUM 8.6 mg/dl (8.4-10.2); CARBON DIOXIDE 30 mmol/L (21-31); CHLORIDE 100 mmol/L (97-110); CREATININE 6.92 mg/dl (0.61-1.24); GLUCOSE 124 mg/dl (70-220); POTASSIUM 4.8 mmol/L (3.5-5.1); SODIUM 138 mmol/L (135-144)
[2018-01-14] MEDS: HEPARIN 1000 UNITS/ML 10 ML INJ CATHETER (20:18)
[2018-01-14] MEDS: CEFEPIME 2GM/50 ML (PMX) 50 ML IVPB (21:30)
[2018-01-14] MEDS: INSULIN GLARGINE [LANtus] 3 ML PEN SC (21:50)
[2018-01-15] MEDS: INSULIN ASPART [NOVOLOG] 3 ML PEN SC ×4 (01:00→13:00)
[2018-01-15] MEDS: ALBUTEROL HFA 8 GM INHALER INH ×3 (01:05→15:05)
[2018-01-15] MEDS: ACCU-CHEK XX (02:00)
[2018-01-15 08:45] LABS: PHENYTOIN (DILANTIN) < 3.0 ug/ml (10.0-20.0)
[2018-01-15] MEDS: PHENYTOIN (100 MG/4 ML) CUP NGT (09:22)
[2018-01-15] MEDS: ARTIFICIAL TEARS 15 ML OPH BOTH EYES ×2 (09:23→14:23)
[2018-01-15] MEDS: ASPIRIN (EC) 81 MG TAB PO (09:23)
[2018-01-15] MEDS: FAMOTIDINE 20 MG TAB PO (09:23)
[2018-01-15] MEDS: ENOXAPARIN 30 MG/0.3 ML SYG SC (09:27)
[2018-01-15] MEDS: PHENYTOIN 1,250 MG in SOD CHLORIDE 0.9% 150 ML IV ×2 (12:55→14:24)
[2018-01-15] MEDS: morphine (DRIP) 100 MG/100 ML 100 ML IV (17:48)
[2018-01-15] MEDS: LORAZEPAM 2 MG INJ IV ×2 (18:14→23:18)
[2018-01-15] MEDS ORDERED: PHENYTOIN (100 MG/4 ML) CUP NGT (21:00)
[2018-01-16] MEDS: morphine (DRIP) 100 MG/100 ML 100 ML IV (18:14)
[2018-01-17] MEDS: SCOPOLAMINE 1.5 MG PATCH TRANSDERM (08:59)
[2018-01-17] MEDS: morphine (DRIP) 100 MG/100 ML 100 ML IV (10:03)
== END 2018-01-18 01:00 | disposition expired | DRG 286 ==
LOC: MS2 01-15 20:10 → E/R 06:27 → ICU 07:25
PROC: 4A023N7 Measurement of Cardiac Sampling and Pressure, Left Heart, Percutaneous Approach (ICD-10-PCS; principal; 2018-01-03 15:00)
PROC: B211YZZ Fluoroscopy of Multiple Coronary Arteries using Other Contrast (ICD-10-PCS; 2018-01-03 15:00)
PROC: B215YZZ Fluoroscopy of Left Heart using Other Contrast (ICD-10-PCS; 2018-01-03 15:00)
PROC: 06HN33Z Insertion of Infusion Device into Left Femoral Vein, Percutaneous Approach (ICD-10-PCS; 2018-01-03 15:00)
PROC: 0BH17EZ Insertion of Endotracheal Airway into Trachea, Via Natural or Artificial Opening (ICD-10-PCS; 2018-01-03 15:13)
PROC: 5A1955Z Respiratory Ventilation, Greater than 96 Consecutive Hours (ICD-10-PCS; 2018-01-03 15:13)
PROC: 5A1D70Z Performance of Urinary Filtration, Intermittent, Less than 6 Hours Per Day (ICD-10-PCS; 2018-01-03 15:13)
PROC: 06HM33Z Insertion of Infusion Device into Right Femoral Vein, Percutaneous Approach (ICD-10-PCS; 2018-01-03 15:13)
PROC: 5A12012 Performance of Cardiac Output, Single, Manual (ICD-10-PCS; 2018-01-03 15:13)
DX: I46.9 Cardiac arrest, cause unspecified (principal); N17.0 Acute kidney failure with tubular necrosis; K72.01 Acute and subacute hepatic failure with coma; J96.01 Acute respiratory failure with hypoxia; A41.9 Sepsis, unspecified organism; R65.21 Severe sepsis with septic shock; J18.9 Pneumonia, unspecified organism; G93.1 Anoxic brain damage, not elsewhere classified; R40.2431 Glasgow coma scale score 3-8, in the field [EMT or ambulance]; D64.9 Anemia, unspecified; E87.5 Hyperkalemia; E78.5 Hyperlipidemia, unspecified; E11.9 Type 2 diabetes mellitus without complications; E66.01 Morbid (severe) obesity due to excess calories; I10 Essential (primary) hypertension; Z66 Do not resuscitate; Z68.39 Body mass index [BMI] 39.0-39.9, adult; Z87.891 Personal history of nicotine dependence; Z79.82 Long term (current) use of aspirin; Z79.4 Long term (current) use of insulin; Z79.1 Long term (current) use of non-steroidal anti-inflammatories (NSAID)
CPT/HCPCS: 31500; 36415; 36600; 70450; 71045; 71275; 75635; 76700; 76937; 80048; 80053; 80076; 80185; 80202; 82140; 82150; 82803; 82962; 83036; 83605; 83690; 83735; 84100; 84484; 85025; 85378; 85384; 85610; 85730; 86704; 86706; 86708; 86709; 86803; 87040; 87081; 87340; 90935; 92950; 93005; 93306; 93458; 93459; 94002; 94003; 94640; 94664; 94770; 95819; 96365; 96366; 96375; 99291-25